=== PATIENT | male | born 1935 | race Caucasian/White ===

== ENCOUNTER 2017-05-03 10:54 | Emergency (ER) | payer OTHER, BC ==
[2017-05-03 11:30] VITALS: BP 133/63; BMI 29.8
[2017-05-03] MEDS ORDERED: NEOSPORIN OINT ONE (12:11)
[2017-05-03] MEDS ORDERED: NEOSPORIN OINT TOP ONE (12:12)
--- NOTE | 2017-05-03 12:15 | DR.GENAD ---
HPI - PCP Primary Care Physician: RAMONE - Complaint/Symptoms Chief Complaint Doctors Comments: Patient complains of a sore on his buttock that has been there for a while and he has seen Dr. Leos and he has given him creams and powder without improvement and he wants it cut out. States he saw Patric Olson and he cut one before and it got better after he lanced it and Kay Olson is not with Dr. Leos any more. states he has pulled a thrown out his skin and he has been working at it but it has not healed. He denies fever, chills or any drainage. States the area has been hurting. He does not know the name of the creams or medicines he is taking for the lesion. Chief Complaint:: PT C/O A SORE TO LT BUTTOCK AREA THAT IS PAINFUL. PT STATES HE HAS HAD A PLACE BEFORE THAT WAS TAKEN CARE OF, BUT THIS ONE HE HAS HAD FOR MONTHS AND HE IS HAVING ALOT OF PAIN IN THAT AREA. - Nurses notes reviewed Nurses Notes Review: Yes - Source History Provided: Patient - Mode of Arrival Mode of Arrival: Ambulatory - Timing Onset of Chief Complaint: 04/03/17 Came on: Gradually - Duration Duration: Constant How lon Duration: Weeks - Location Location: buttock - Severity Severity: Mild - Modifying Factors Worsens:: nothing Improves:: nothing PMH - PMH Past Medical History: Yes Past Medical History: Arthritis, CHF, Coronary Artery Disease, CVA, Dyslipidemia , GERD, Hypertension, Kidney Stones, [place] Past Surgical History: Yes Surgical History: Angioplasty/Stents, CABG/Valve Surgery, Joint Replacement, Ortho Surgery, Tonsillectomy, Other - Family History History of Family Medical Conditions: Yes Family Medical History: Cancer - Social History Does any household member use tobacco: No Alcohol Use: None Do you use any recreational Drugs:: No Lives With: Family Lives Where: Home - infectious screening In the last 2 months have you had wt loss of >10#?: NO Have you had fever, night sweats or hemotysis?: No Have you traveled outside the country in the last 6 months?: No Isolation: Standard ROS - Review of Systems Constitutional: No Symptoms Reported. negative: See HPI, Chills, Diaphoresis, Fever, Malaise, Weakness, Irritable, Fatigue, Loss of Appetite, Other Eyes: No Symptoms Reported ENTM: No Symptoms Reported. negative: See HPI, Ear Pain, Ear Discharge, Pulling on Ears, Hearing Loss, Nose Pain, Nose Discharge, Epistaxis, Nose Congestion, Mouth Pain, Mouth Swelling, Loose Teeth, Drooling, Throat Pain, Throat Swelling, Ear Foreign Body Respiratoy: No Symptoms Reported. negative: See HPI, Productive Cough, Non- Productive Cough, Moist Cough, Dry Cough, Hacking Cough, Barking Cough, Brassy Cough, Orthopnea, Short of Breath, Stridor, Wheezing, Hemoptysis, Other Cardiovascular: No Symptoms Reported. negative: See HPI, Chest Pain, Edema, Palpitations, Syncope, Cyanosis, Skin Mottling, Other Gastrointestinal/Abdominal: No Symptoms Reported. negative: See HPI, Abdominal Pain, Constipation, Diarrhea, Nausea, Vomiting, Food Intolerance, Other Genitourinary: No Symptoms Reported Neurological: No Symptoms Reported. negative: See HPI, Anxiety, Depressed, Emotional Problems, Headache, Numbness, Paresthesia, Pre-existing Deficit, Seizure, Tingling, Tremors, Weakness, Dizziness, Problems Walking, Speech Problem, Other Musculoskeletal: No Symptoms Reported Integumentary: No Symptoms Reported, Lesions (superficial abrasion buttock 0.5cm ; no active bleeding; no swelling or nodule). negative: See HPI, Change in Color, Change in Hair/Nails, Dryness, Lumps, Rash, Itching, Wound, Bruises, Juandice, Other Hematologic/Lymphatic: No Symptoms Reported Endocrine: No Symptoms Reported Psychiatric: No Symptoms Reported PE - Vital Signs Vitals: Temperature 98.9 F Pulse Rate 59 Respiratory Rate 22 Blood Pressure [Left Arm] 166/91 Blood Pressure [Right Arm] 142/81 Blood Pressure 133/63 O2 Sat by Pulse Oximetry 94 - General Limitations: No Limitations General Appearance: Alert, In No Apparent Distress - Head Head Exam: Normal Inspection, Atraumatic, Normocephalic - Eyes Eye exam: Normal Appearance, PERRL, EOMI. negative: Scleral Icterus, Conjunctival Injection, Nystagmus, Miosis, Mydrasis, Periorbital Swelling, Periorbital Tenderness, Other - ENT ENT Exam: Normal Exam, Normal Oropharynx, Normal External Ear Exam, Mucous Membranes Moist, TM's Normal Bilaterally External Ear Exam: Normal External Inspection TM/Canal Exam: Bilateral Normal Nose Exam: Normal Nose Exam Mouth Exam: Normal Inspection Throat Exam: Normal Inspection. negative: Tonsillar Erythema, Tonsillomegaly, Tonsillar Exudate, R Peritonsillar Mass, L Peritonsillar Mass, Muffled Voice, Other - Neck Neck Exam: Normal Inspection, Full ROM, Trachea Midline - Chest Chest Inspection: Normal Inspection, Symmetric Chest Wall Rise - Respiratory Respiratory Exam: Normal Lung Sounds Bilat Respiratory Exam: Bilateral Clear to Auscultation - Cardiovascular Cardiovascular Exam: Regular Rate, Normal Rhythm - Abdominal Exam Abdominal Exam: Normal Inspection, Normal Bowel Sounds, Soft. negative: Distention, Tenderness, Guarding, Rebound, Rigidity, Dimnished Bowel Sounds, Hyperactive Bowel Sounds, Hypoactive Bowel Sounds, Organomegaly, Trauma, Incision, Ascites, Mass, Bruit, Pulsatile Mass, Hernia, Other Abdominal Tenderness: negative: RUQ, RLQ, LUQ, LLQ, Epigastrium, Suprapubic, Diffuse, Mild, Moderate, Severe, Other - Extremities Extremities Exam: Normal Inspection, Full ROM, Normal Capillary Refill. negative: Tenderness, Edema, Joint Swelling, Calf Tenderness, Other - Back Back Exam: Normal Inspection, Full ROM - Neurologic Neurological Exam: Alert, Oriented X3, CN II-XII Intact, Reflexes Normal. negative: Normal Gait (gait not tested) - Psychiatric Psychiatric Exam: Normal Affect, Normal Mood, Anxious. negative: Depressed, Agitated, Flat Affect, Manic, Homicidal Ideation, Suicidal Ideation, Other - Skin Skin Exam: Warm, Dry, Intact, Normal Color. negative: Rash (superficial abrasion left buttock) - Diagnosis Discharge Problem: Abrasion of buttock, left Qualifiers: Encounter type: initial encounter Qualified Code(s): S30.810A - Abrasion of lower back and pelvis, initial encounter - Discharge Plan Disposition: 01 HOME, SELF-CARE Condition: Stable Prescriptions: Cephalexin [KEFLEX CAP 500 MG *] 500 mg PO TID #30 cap Mupirocin Oint [BACTROBAN OINT 2%] 1 applic EXT BID #22 gm - Follow ups/Referrals Follow ups/Referrals: Alfred Leos [Primary Care Provider] - 3 days - Instructions Instructions: How to Prevent Pressure Injuries, Cellulitis, Adult, [id number]
== END 2017-05-03 12:34 | disposition home or self-care (01) ==
LOC: ER 11:18
DX: S30.810A Abrasion of lower back and pelvis, initial encounter (principal); Y33.XXXA Other specified events, undetermined intent, initial encounter; Y92.9 Unspecified place or not applicable
CPT/HCPCS: 99282